=== PATIENT | male | born 1950 | race Caucasian/White ===

== ENCOUNTER 2023-06-25 07:57 | Emergency (ER) | payer MEDICARE ==
--- NOTE | 2023-06-25 08:01 | ERPHSYRPT ---
- History of Present Illness Time Seen by Provider: 06/25/23 08:01 Source: patient Exam Limitations: no limitations Physician History: This is an obese 72-year-old white male patient who is on and has complaints of right buttock ulceration/tenderness as well as pain on the dorsal aspect of his right foot. Patient has had toe amputations in the past. Patient states he used to be diabetic and he is no longer a diabetic. Although he is receiving Ozempic injections. Pain in both areas have been present for 2 weeks. no acute injury. pts son provided independent, additional hx. he states his father sits and lays down most of the day. right foot dorsal aspect has greatest amount of pain. no cp, no sob. Patient has a history of hypertension, hyperlipidemia and hypothyroidism. Patient sees an outpatient pain specialist. Patient is on buprenorphine/naloxone medication. Patient states that his last dose was last evening. Method of Injury: other (No injury) Occurred: other (Symptoms in both areas for 2 weeks) Quality: intermittent, sharpness (Right foot), stabbing (Right foot) Severity of Pain-Max: moderate (Right foot) Severity of Pain-Current: moderate (Right foot) Lower Extremities Pain: foot: right (Dorsal aspect) Modifying Factors: Improves With: nothing Associated Symptoms: none Allergies/Adverse Reactions: No Known Drug Allergies Allergy (Verified 06/25/23 08:10) Home Medications: Atorvastatin Calcium [Lipitor] 1 tab PO HS 06/25/23 [History] Levothyroxine Sodium 1 tab PO DAILY 06/25/23 [History] Losartan Potassium [Cozaar] 1 tab PO HS 06/25/23 [History] Propranolol HCl [Inderal ] 1 tab PO BID 06/25/23 [History] Travel Risk - International Travel Have you traveled outside of the country in past 3 weeks: No - Coronavirus Screening Are you exhibiting any of the following symptoms?: No Close contact with a COVID-19 positive Pt in past 14-21 Days: No - Review of Systems Constitutional: No Symptoms Eyes: No Symptoms Ears, Nose, & Throat: No Symptoms Respiratory: No Symptoms Cardiac: No Symptoms Abdominal/Gastrointestinal: No Symptoms Genitourinary Symptoms: No Symptoms Musculoskeletal: Other (Dorsal aspect right foot pain) Skin: Decubiti (Right buttock) Neurological: No Symptoms Psychological: No Symptoms Endocrine: No Symptoms Hematologic/Lymphatic: No Symptoms Immunological/Allergic: No Symptoms All Other Systems: Reviewed and Negative - Past Medical History Pertinent Past Medical History: Yes - Physical Exam General Appearance: no apparent distress, alert, anxiety, obese Eyes, Ears, Nose, Throat Exam: normal ENT inspection, moist mucous membranes Neck Exam: normal inspection, non-tender, supple, full range of motion Cardiovascular/Respiratory Exam: chest non-tender, no respiratory distress Gastrointestinal/Abdominal Exam: non-tender Back Exam: normal inspection, normal range of motion, No CVA tenderness, No vertebral tenderness Legs Exam: bilateral leg: non-tender, normal inspection, normal range of motion, no evidence of injury Knees Exam: bilateral knee: non-tender, normal inspection, normal range of motion, no evidence of injury Ankle Exam: bilateral ankle: non-tender, normal inspection, normal range of motion, no evidence of injury Foot Exam: right foot: normal range of motion, pain (Dorsal aspect.), soft tissue tenderness (Dorsal aspect), other (Skin of right foot and ankle are very dry. No cellulitis present. Strong dopplerable pedal pulses), left foot: non- tender, no evidence of injury Neuro/Tendon Exam: normal sensation, normal motor functions, normal tendon functions Mental Status Exam: alert, oriented x 3, cooperative Skin Exam: dry SpO2 Interpretation: normal O2 Delivery: Room Air - Course Nursing assessment & vital signs reviewed: Yes - Progress Progress: pain not gone completely, re-examined Progress Note: 06/25/23 08:39 This patient's medical issue is 1 of low complexity. Level complex in the workup performed is based on review of the patient's past medical history, review of the patient's medication list, reviewed patient's drug allergy list, history present illness and physical findings on examination. Patient does not require any laboratory or radiographic studies. I believe the patient has an early decubitus ulcer of his right buttock. The skin appears to be breaking down. We will place him on antibiotics for this and refer him to the wound care clinic here at [facility]. The second issue is pain in his right foot. I do not believe the patient has shingles. We will avoid acyclovir at this time. I will try to treat his pain, which I think is more of a peripheral neuropathy, with amitriptyline. He can continue his buprenorphine and naloxone medication. There is no evidence of any acute, emergent cause of his pain. He can have his pain controlled as an outpatient. 06/25/23 08:40 Counseled pt/family regarding: diagnosis, need for follow-up Medical Desision Making - Independent Historian Additional History obtained from: Family - Diagnostic Testing Diagnostic test were ordered, analyzed, and reviewed by me: No - Risk of complications The pt has a mod risk of morbidity or mortality based on: Need for prescription drug management - Departure Departure Disposition: Home Clinical Impression: Decubitus ulcer, Peripheral neuropathy Condition: Stable Critical Care Time: No Additional Instructions: Do more standing and walking rather than sitting and lying. Follow-up at the [facility] wound care clinic for further evaluation management. Take your antibiotics as prescribed. Call your pain specialist for further evaluation and management and control of your pain issues. Continue your other medications as prescribed. Prescriptions: Amitriptyline HCl 25 mg [Amitriptyline 25 mg Tablet] 25 mg PO HS #5 tablet Smz/Tmp Ds Tablet [Bactrim Ds Tablet] 1 udtab PO BID #14 tablet
[2023-06-25 08:44] VITALS: TEMP 97.6
[2023-06-25 08:45] VITALS: O2SAT 94
[2023-06-25] MEDS ORDERED: solu-MEDROL 125 MG, Sterile H2O 10 ml 2 ML IM ONE ×2 (08:48)
[2023-06-25] MEDS ORDERED: Norflex 60 MG/2 ML IM ONE (08:48)
[2023-06-25] MEDS ORDERED: Norflex 60 MG/2 ML ONE (08:52)
[2023-06-25] MEDS ORDERED: Sterile H2O 10 ml IJ ONE (08:52)
[2023-06-25] MEDS ORDERED: solu-MEDROL ONE (08:52)
[2023-06-25 09:31] VITALS: BP 139/68; PULSE 74; RESP 16
== END 2023-06-25 09:30 | disposition home or self-care (01) ==
LOC: ED 07:57
DX: L89.311 Pressure ulcer of right buttock, stage 1 (principal); G62.9 Polyneuropathy, unspecified; I10 Essential (primary) hypertension; E78.5 Hyperlipidemia, unspecified; Z79.85 Long-term (current) use of injectable non-insulin antidiabetic drugs; Z79.891 Long term (current) use of opiate analgesic; Z79.899 Other long term (current) drug therapy
CPT/HCPCS: 96372; 99283; J2360; J2930

== ENCOUNTER 2023-10-16 19:39 | Observation (INO) | payer MEDICARE ==
--- NOTE | 2023-10-16 20:21 | ERPHSYRPT ---
- History of Present Illness Time Seen by Provider: 10/16/23 20:10 Source: patient, family Physician History: 73yo m presents for left foot pain that started last night. Pt states he has very bad neuropathy in his feet, believes this is the same type of pain. Pt's also reports some word finding difficulties and slight confusion earlier today, states pt woke up w/ his CPAP off and had difficulties putting it back on. Also had difficulty remembering what he was doing earlier in the day and became defensive toward his . Pt is gennyy AxO x 3, no word finding difficulties during my exam, pt did not want to participate in memory testing or recall testing, stating he knew he wouldnt be able to recite the months of the year backwards or spell a 5 letter word. Timing/Duration: yesterday Severity: moderate Modifying Factors: Improves With: nothing Associated Symptoms: No nausea, No vomiting, No abdominal pain, No shortness of breath, No diaphoresis, No chest pain, No headaches, No seizure, No weakness Allergies/Adverse Reactions: No Known Drug Allergies Allergy (Verified 10/16/23 19:47) Home Medications: Aspirin EC 81 mg [Ecotrin 81 mg] 1 tab PO DAILY 06/25/23 [History] Atorvastatin Calcium [Lipitor] 1 tab PO HS 06/25/23 [History] Buprenorphine HCl/Naloxone HCl [Suboxone 8 mg-2 mg Sl Film] 1 film SUBMUCOSAL TID 06/25/23 [History] Escitalopram Oxalate [Lexapro] 2 tab PO DAILY 06/25/23 [History] Ezetimibe 10 mg [Zetia 10 MG] 1 tab PO HS 06/25/23 [History] Folic Acid/Vit B Complex and C [Super B Complex Tablet] 1 tab PO DAILY 06/25/23 [History] Levothyroxine Sodium 1 tab PO DAILY 06/25/23 [History] Losartan Potassium [Cozaar] 1 tab PO HS 06/25/23 [History] Multivitamin 1 tab PO DAILY 06/25/23 [History] Propranolol HCl [Inderal ] 1 tab PO BID 06/25/23 [History] Tamsulosin HCl 0.4 mg [Flomax 0.4 MG] 1 cap PO HS 06/25/23 [History] Dulaglutide [Trulicity] 0.75 mg SQ WEEKLY 10/16/23 [History] Super Vitamin B Complex 1 tab PO DAILY 10/16/23 [History] Hx Tetanus, Diphtheria Vaccination/Date Given: Yes Hx Influenza Vaccination/Date Given: Yes Hx Pneumococcal Vaccination/Date Given: Yes - Review of Systems Constitutional: No Symptoms Eyes: No Symptoms Respiratory: No Symptoms Cardiac: No Symptoms Abdominal/Gastrointestinal: No Symptoms Musculoskeletal: Other (left foot pain) Neurological: Other (word finding difficulty, confusion), No Dizziness, No Focal Weakness, No Gait Changes, No Headache, No Lethargy, No Paralysis, No Parasthesia, No Seizure, No Sensory Changes - Past Medical History Pertinent Past Medical History: Yes Cardiac History: High Cholesterol, Hypertension Endocrine Medical History: Diabetes Type II, Hypothyroidism Musculoskeletal History: Fractures GI Medical History: Gallbladder Disease History: Renal Disease Psycho-Social History: Anxiety, Depression Male Reproductive Disorders: Prostate Problems Other Medical History: Multiple Myeloma, chronic pain: Pain management in [place] (Ozzie Gaines NP) - Past Surgical History Past Surgical History: Yes Gastrointestinal: Cholecystectomy Musculoskeletal: Amputation, Other Other Surgical History: Back implant (Wavewriter Alpha 16 IPG), right wrist (librado and pins), Amputation of 1st, 2nd, 3rd toes of right foot, right knee replacement, left knee replacement, left femur (metal plate), vicente/trach, 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, sphincterotomy - Social History Smoking Status: Never smoker Exposure to second hand smoke: No Drug Use: none Patient Lives Alone: No - Nursing Vital Signs Nursing Vital Signs: Initial Vital Signs Temperature 98.1 F 10/16/23 19:49 Pulse Rate 79 10/16/23 19:49 Respiratory Rate 22 10/16/23 19:49 Blood Pressure 154/73 10/16/23 19:49 O2 Sat by Pulse Oximetry 98 10/16/23 19:49 Pain Scale Pain Intensity 6 - Physical Exam General Appearance: no apparent distress, alert Eye Exam: PERRL/EOMI, eyes nml inspection, other (pupils slightly diminished in size, reactive ) Ears, Nose, Throat Exam: normal ENT inspection Neck Exam: normal inspection, non-tender, supple Respiratory Exam: normal breath sounds, lungs clear, airway intact, No chest tenderness, No respiratory distress, No diminished breath sounds Cardiovascular Exam: regular rate/rhythm, normal heart sounds, normal peripheral pulses - Course EKG Interpreted by Me: RATE (78), Sinus Rhythm, Other (DE 263; qtc 474) Rhythm Strip: 1st degree block Ordered Tests: Active Orders 24 hr Category Date Time Status NPO (ED) STAT Care 10/16/23 20:17 Active Observation [Place in Observation] ROUTINE Care 10/17/23 00:01 Ordered FOOT (MINIMUM 3 VIEWS) Stat Exams 10/16/23 20:56 Taken HEAD WITHOUT CONTRAST [CT] Stat Exams 10/16/23 20:15 Completed ARTERIAL BLOOD GASES Urgent Lab 10/16/23 20:16 Completed CBC W DIFF Stat Lab 10/16/23 20:30 Completed CMP Stat Lab 10/16/23 20:30 Completed MAGNESIUM Stat Lab 10/16/23 22:22 Completed PROTIME WITH INR Stat Lab 10/16/23 20:30 Completed PTT Stat Lab 10/16/23 20:30 Completed UA W/RFX UR CULTURE Stat Lab 10/16/23 21:35 Completed Transfer Order Routine Transfer 10/17/23 Ordered Medication Summary Discontinued Medications Generic Name Dose Route Start Last Admin Trade Name Freq PRN Reason Stop Dose Admin Droperidol 1.25 mg 10/16/23 22:02 10/16/23 22:22 Droperidol 5 Mg/2 Ml Vial IV 10/16/23 22:03 1.25 mg STAT ONE Administration Droperidol Confirm 10/16/23 22:20 Droperidol 5 Mg/2 Ml Vial Administered 10/16/23 22:21 Dose 5 mg .ROUTE .STK-MED ONE Lab/Rad Data: Laboratory Result Diagrams 10/16/23 20:30 10/16/23 20:30 Laboratory Results 10/16/23 10/16/23 10/16/23 Range/Units 22:22 21:35 20:30 WBC (4.0-10.5) x10^3/uL RBC (4.1-5.6) x10^6/uL Hgb (12.5-18.0) g/dL Hct (42-50) % MCV (78-100) fL MCH (26-32) pg MCHC (32-36) g/dL RDW (11.5-14.0) % Plt Count (150-450) x10^3/uL MPV (7.5-11.0) fL Gran % (36.0-66.0) % Immature Gran % (Auto) (0.00-0.4) % Nucleat RBC Rel Count (0.00-0.1) % Eos # (Auto) (0-0.5) x10^3/uL Immature Gran # (Auto) (0.00-0.03) x10^3u/L Absolute Lymphs (auto) (1.0-4.6) x10^3/uL Absolute Monos (auto) (0.0-1.3) x10^3/uL Absolute Nucleated RBC (0.00-0.01) x10^3u/L Lymphocytes % (24.0-44.0) % Monocytes % (0.0-12.0) % Eosinophils % (0.00-5.0) % Basophils % (0.0-0.4) % Absolute Granulocytes (1.4-6.9) x10^3/uL Basophils # (0-0.4) x10^3/uL PT 10.9 (9.4-12.5) SECONDS INR 1.00 (0.8-3.0) APTT 24.8 L (25.1-36.5) SECONDS Puncture Site pCO2 (35-45) mmHg pO2 (75-100) mmHg Base Excess (-2.0-2.0) O2 Saturation (94-100) g/dF ABG pH (7.35-7.45) ABG HCO3 (22-28) ABG O2 Sat (Measured) (95-100) % Eder Test A-a Gradient a/A Ratio Hemoglobin Carboxyhemoglobin (0.0-6.9) % THgb Methemoglobin (1.4-1.5) % Potassium (3.5-5.1) Temperature C POC O2 Flow Rate % Sodium (135-145) mmol/L Chloride (98-107) mmol/L Carbon Dioxide (22-30) mmol/L Anion Gap (5-15) MEQ/L BUN (9-20) mg/dL Creatinine (0.66-1.25) mg/dL Estimated GFR ML/MIN Glucose (74-106) mg/dL Calcium (8.4-10.2) mg/dL Magnesium 1.7 (1.6-2.3) mg/dL Total Bilirubin (0.2-1.3) mg/dL AST (17-59) U/L ALT (0-50) U/L Alkaline Phosphatase (38-126) U/L Serum Total Protein (6.3-8.2) g/dL Albumin (3.5-5.0) g/dL Urine Color Dark Yellow (Yellow) Urine Appearance Clear (Clear) Urine pH 8.0 (4.6-8.0) Ur Specific Fonda 1.015 (1.005-1.030) Urine Protein 100 A (Negative) Urine Glucose (UA) Negative (Negative) mg/dL Urine Ketones Negative (Negative) Urine Blood Negative (Negative) Urine Nitrite Negative (Negative) Urine Bilirubin Negative (Negative) Urine Urobilinogen 1.0 A (0.2) mg/dL Ur Leukocyte Esterase Negative (Negative) U Hyaline Cast (Auto) NONE SEEN (0-2) /LPF Urine Microscopic RBC 3-5 (0-5) /HPF Urine Microscopic WBC 0-2 (0-5) /HPF Ur Epithelial Cells None Seen (None Seen) /HPF Urine Bacteria None Seen (None Seen) /HPF Urine Culture Reflexed NO (NO) 10/16/23 10/16/23 10/16/23 Range/Units 20:30 20:30 20:16 WBC 6.5 (4.0-10.5) x10^3/uL RBC 3.50 L (4.1-5.6) x10^6/uL Hgb 11.8 L (12.5-18.0) g/dL Hct 34.4 L (42-50) % MCV 98.3 (78-100) fL MCH 33.7 H (26-32) pg MCHC 34.3 (32-36) g/dL RDW 14.0 (11.5-14.0) % Plt Count 125 L (150-450) x10^3/uL MPV 10.2 (7.5-11.0) fL Gran % 75.3 H (36.0-66.0) % Immature Gran % (Auto) 0.3 (0.00-0.4) % Nucleat RBC Rel Count 0.0 (0.00-0.1) % Eos # (Auto) 0.03 (0-0.5) x10^3/uL Immature Gran # (Auto) 0.02 (0.00-0.03) x10^3u/L Absolute Lymphs (auto) 1.11 (1.0-4.6) x10^3/uL Absolute Monos (auto) 0.44 (0.0-1.3) x10^3/uL Absolute Nucleated RBC 0.00 (0.00-0.01) x10^3u/L Lymphocytes % 17.0 L (24.0-44.0) % Monocytes % 6.7 (0.0-12.0) % Eosinophils % 0.5 (0.00-5.0) % Basophils % 0.2 (0.0-0.4) % Absolute Granulocytes 4.93 (1.4-6.9) x10^3/uL Basophils # 0.01 (0-0.4) x10^3/uL PT (9.4-12.5) SECONDS INR (0.8-3.0) APTT (25.1-36.5) SECONDS Puncture Site rr pCO2 37 (35-45) mmHg pO2 72 L (75-100) mmHg Base Excess 2.5 H (-2.0-2.0) O2 Saturation 93.4 L (94-100) g/dF ABG pH 7.46 H (7.35-7.45) ABG HCO3 26.3 (22-28) ABG O2 Sat (Measured) 95.9 (95-100) % Eder Test y A-a Gradient 31 a/A Ratio 0.70 Hemoglobin 11.9 Carboxyhemoglobin 1.7 (0.0-6.9) % THgb Methemoglobin 0.8 L (1.4-1.5) % Potassium 4.0 3.9 (3.5-5.1) Temperature 37.0 C POC O2 Flow Rate 21 % Sodium 138 (135-145) mmol/L Chloride 103 (98-107) mmol/L Carbon Dioxide 27 (22-30) mmol/L Anion Gap 12.2 (5-15) MEQ/L BUN 16 (9-20) mg/dL Creatinine 1.15 (0.66-1.25) mg/dL Estimated GFR 67.2 ML/MIN Glucose 97 (74-106) mg/dL Calcium 8.6 (8.4-10.2) mg/dL Magnesium (1.6-2.3) mg/dL Total Bilirubin 1.50 H (0.2-1.3) mg/dL AST 29 (17-59) U/L ALT 18 (0-50) U/L Alkaline Phosphatase 40 (38-126) U/L Serum Total Protein 7.1 (6.3-8.2) g/dL Albumin 3.9 (3.5-5.0) g/dL Urine Color (Yellow) Urine Appearance (Clear) Urine pH (4.6-8.0) Ur Specific Fonda (1.005-1.030) Urine Protein (Negative) Urine Glucose (UA) (Negative) mg/dL Urine Ketones (Negative) Urine Blood (Negative) Urine Nitrite (Negative) Urine Bilirubin (Negative) Urine Urobilinogen (0.2) mg/dL Ur Leukocyte Esterase (Negative) U Hyaline Cast (Auto) (0-2) /LPF Urine Microscopic RBC (0-5) /HPF Urine Microscopic WBC (0-5) /HPF Ur Epithelial Cells (None Seen) /HPF Urine Bacteria (None Seen) /HPF Urine Culture Reflexed (NO) - Progress Progress: improved Progress Note: 10/16/23 22:16 pt complaining of worsening left foot pain will give droperidol IV for neuropathic pain EKG showed qtcb 474, will monitor closely for qt elongation will check mg level 10/16/23 23:00 foot pain improved w/ droperidol pt AxO x 3 on exam, pt and agree he is at baseline mental status 10/17/23 00:02 Discussed admission for obs w/ Dr Angelo who accepts Discussed with : Other (Dr Angelo) Will see patient in: hospital (observation) Counseled pt/family regarding: lab results, diagnosis, need for follow-up, rad results Medical Desision Making - Discussion of managment Care discussed with:: hospitalist Reviewed:: Test results, Need for additional workup Agreed on:: Treatment plan, need for follow-up, place in obs Will see patient: in hospital - Diagnostic Testing Diagnostic test were ordered, analyzed, and reviewed by me: Yes Radiological Interpretation: Reviewed by me, Teleradiologist Report - Risk of complications The pt has a high risk of morbidity or mortality based on: Decision regarding hospitilization or escalation of hosp level of care - Departure Departure Disposition: Observation Clinical Impression: Confusion Peripheral neuropathy Qualifiers: Peripheral neuropathy type: polyneuropathy associated with underlying disease Qualified Code(s): G63 - Polyneuropathy in diseases classified elsewhere Condition: Stable Critical Care Time: No Referrals: ORESTES DEWITT, POCKET [facility]ER [Primary Care Provider] - Follow up/PCP as directed
[2023-10-16 20:27] LABS: A-aADO2 31; ABG HEMOGLOBIN 11.9; ABG POTASSIUM 3.9 (3.5-5.1); ABG SITE rr; ALLEN TEST OK? y; ARTERIAL BLD GAS O2 SATURATION 95.9 % (95-100); ARTERIAL BLOOD GAS BASE EXCESS 2.5 (-2.0-2.0); ARTERIAL BLOOD GAS FIO2 21 %; ARTERIAL BLOOD GAS PCO2 37 mmHg (35-45); ARTERIAL BLOOD GAS PO2 72 mmHg (75-100); ARTERIAL BLOOD GAS pH 7.46 (7.35-7.45); CARBOXYHEMOGLOBIN 1.7 % THgb (0.0-6.9); HCO3- 26.3 (22-28); HGB O2 SAT 93.4 g/dF (94-100); Methhemoglobin 0.8 % (1.4-1.5)
[2023-10-16 20:37] LABS: Absolute Neutrophil Ct (ANC) 4.93 x10^3/uL (1.4-6.9); BASOPHIL % 0.2 % (0.0-0.4); Basophil (Absolute #) 0.01 x10^3/uL (0-0.4); Eosinophil % 0.5 % (0.00-5.0); Eosinophil (Absolute #) 0.03 x10^3/uL (0-0.5); Hematocrit 34.4 % (42-50); Hemoglobin 11.8 g/dL (12.5-18.0); IMMATURE GRAN # 0.02 x10^3u/L (0.00-0.03); IMMATURE GRAN % 0.3 % (0.00-0.4); Lymphocyte (Absolute #) 1.11 x10^3/uL (1.0-4.6); Mean Cell Volume 98.3 fL (78-100); Mean Corpuscular Hemoglobin 33.7 pg (26-32); Mean Corpuscular Hgb Concent. 34.3 g/dL (32-36); Mean Platelet Volume 10.2 fL (7.5-11.0); Monocyte (Absolute #) 0.44 x10^3/uL (0.0-1.3); Monocytes % 6.7 % (0.0-12.0); Neutrophil % 75.3 % (36.0-66.0); Platelet Count 125 x10^3/uL (150-450); White Blood Count 6.5 x10^3/uL (4.0-10.5)
[2023-10-16 20:49] LABS: ALBUMIN 3.9 g/dL (3.5-5.0); ANION GAP 12.2 MEQ/L (5-15); BILIRUBIN,TOTAL 1.5 mg/dL (0.2-1.3); Calcium 8.6 mg/dL (8.4-10.2); Creatinine 1 1.15 mg/dL (0.66-1.25); EST GLOMERULAR FILTRATION RATE 67.2 ML/MIN; Total Protein 7.1 g/dL (6.3-8.2)
[2023-10-16 20:52] LABS: PROTIME 10.9 SECONDS (9.4-12.5); PTT 24.8 SECONDS (25.1-36.5)
--- NOTE | 2023-10-16 21:29 | XRAY ---
CLINICAL HISTORY: confusion TECHNIQUE: An axial CT scan of the brain was performed from the skull base to the high parietal region. One of the following dose reduction techniques were utilized for this exam: Automated exposure control, adjustment of the mA and/or kV according to patient size, and use of iterative reconstruction CTDI: 53.92, DLP: 1016.25. COMPARISON: None. FINDINGS: The visualized brain parenchyma shows normal appearance. No focal parenchymal abnormalities are demonstrated. Christopher-white matter differentiation is maintained. No midline shifts or deformity. No intracerebral or extra axial hematoma. The cortical sulci, fissures, basal cisterns, and ventricles are widened, and the cerebellar folia are shrunken, consistent with volume loss. Normal CT appearance of the posterior fossa structures namely the cerebellar hemispheres, brainstem and cerebellar peduncles. The IACs are unremarkable. The cerebello-pontine angles are clear. The osseous structures in the skull base are unremarkable. No definite calvarium fractures. Scanned paranasal sinuses are clear. 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 (10/16/2023 21:24:51 EDT)
[2023-10-16 23:08] LABS: Appearance Clear (Clear); Bacteria None Seen /HPF (None Seen); Bilirubin Negative (Negative); Blood Negative (Negative); Epithelial Cells None Seen /HPF (None Seen); Glucose, Urine Negative (Negative); Hyaline Casts NONE SEEN /LPF (0-2); Ketones Negative (Negative); Leukocyte Esterase Negative (Negative); Nitrite Negative (Negative); Protein,Urine Dip 100 (Negative); Specific Gravity 1.015 (1.005-1.030); WBC 0-2 /HPF (0-5)
[2023-10-16 23:09] LABS: ADD URINE CULTURE? NO (NO)
--- NOTE | 2023-10-17 00:16 | PCM.HP ---
History of Present Illness - Chief Complaint Chief Complaint: confusion Date: 10/16/23 History of Present Illness: Mr. CAMPO is a 73 year old male with a past medical history significant for hypertension, hyperlipidemia, sleep apnea, and neuropathy who presented to the hospital with complaints of left foot pain. His also reported increasing confusion, difficulty finding the right words, and he apparently pulled off his CPAP mask. He denies any focal weakness, slurred speech or dizziness. He was given droperidol for his foot, which has improved. His mentation is improved and he is currently AAOx3 in the ER. No chest pain, shortness of breath or palpitations. No nausea, vomiting or diarrhea. No dysuria, hematuria or foamy urine. - Review of Systems Constitutional: No Fever, No Chills, No Fatigue Eyes: No Vision Changes Ears, Nose, & Throat: No Ear Discharge Respiratory: No Cough, No Orthopnea, No Short Of Breath Cardiac: No Chest Pain, No Edema, No Palpitations Abdominal/Gastrointestinal: No Abdominal Pain, No Nausea, No Vomiting, No Diarrhea Genitourinary Symptoms: No Dysuria, No Frequency, No Hematuria Musculoskeletal: No Arthralgias Skin: No Cellulitis, No Rash Neurological: No Dizziness, No Focal Weakness, No Gait Changes, No Seizure Psychological: No Suicidal Ideations Endocrine: No Polyuria, No Polydipsia, No Hair Changes Hematologic/Lymphatic: No Anemia Medications & Allergies Home Medications: Home Medication List Aspirin EC 81 mg [Ecotrin 81 mg] 1 tab PO DAILY 06/25/23 [History Confirmed 10/16/23] Atorvastatin Calcium [Lipitor] 1 tab PO HS 06/25/23 [History Confirmed 10/16/23] Buprenorphine HCl/Naloxone HCl [Suboxone 8 mg-2 mg Sl Film] 1 film SUBMUCOSAL TID 06/25/23 [History Confirmed 10/16/23] Escitalopram Oxalate [Lexapro] 2 tab PO DAILY 06/25/23 [History Confirmed 10/16/23] Ezetimibe 10 mg [Zetia 10 MG] 1 tab PO HS 06/25/23 [History Confirmed 10/16/23] Folic Acid/Vit B Complex and C [Super B Complex Tablet] 1 tab PO DAILY 06/25/23 [History Confirmed 10/16/23] Levothyroxine Sodium 1 tab PO DAILY 06/25/23 [History Confirmed 10/16/23] Losartan Potassium [Cozaar] 1 tab PO HS 06/25/23 [History Confirmed 10/16/23] Multivitamin 1 tab PO DAILY 06/25/23 [History Confirmed 10/16/23] Propranolol HCl [Inderal ] 1 tab PO BID 06/25/23 [History Confirmed 10/16/23] Tamsulosin HCl 0.4 mg [Flomax 0.4 MG] 1 cap PO HS 06/25/23 [History Confirmed 10/16/23] Dulaglutide [Trulicity] 0.75 mg SQ WEEKLY 10/16/23 [History Confirmed 10/16/23] Super Vitamin B Complex 1 tab PO DAILY 10/16/23 [History Confirmed 10/16/23] Allergies/Adverse Reactions: Allergies Allergy/AdvReac Type Severity Reaction Status Date / Time No Known Drug Allergies Allergy Verified 10/16/23 19:47 - Past Medical History Past Medical History: Yes Neurological History: No Pertinent History ENT History: No Pertinent History Cardiac History: High Cholesterol, Hypertension Respiratory History: COPD, Sleep Apnea Endocrine Medical History: Diabetes Type II, Hypothyroidism Musculoskelatal History: Fractures GI Medical History: Gallbladder Disease History: Renal Disease Pyscho-Social History: Anxiety, Depression Male Reproductive Disorders: Prostate Problems Comment: Multiple Myeloma, chronic pain: Pain management in [place] (Ozzie Gaines NP) - Past Surgical History Past Surgical History: Yes Neuro Surgical History: No Pertinent History Cardiac History: No Pertinent History Respiratory Surgery: No Pertinent History GI Surgical History: Cholecystectomy Genitourinary Surgical Hx: No Pertinent History Musculskeletal Surgical Hx: Amputation, Other Male Surgical History: No Pertinent History Other Surgical History: Back implant (Wavewriter Alpha 16 IPG), right wrist (librado and pins), Amputation of 1st, 2nd, 3rd toes of right foot, right knee replacement, left knee replacement, left femur (metal plate), vicente/trach, 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, sphincterotomy - Social History Smoking Status: Never smoker Exposure to second hand smoke: No Alcohol: None Drug Use: none - Social Determinants of Health Will the patient participate in the screening: Yes Do you worry about a steady place to live?: No Do you have any problems with any of the following?: Smoke detectors In the past 12 months,have you had to go without utilities?: No Have you or anyone in your house had to go without enough: Choose not to answer Transportation Issues: No Has anyone in your support network made you feel unsafe?: No - Physical Exam Vital Signs: Vital Signs - 24 hr Temp Pulse Resp BP BP Pulse Ox 10/17/23 00:01 77 22 156/104 93 L 10/16/23 23:30 77 18 156/81 94 L 10/16/23 23:01 78 20 134/90 97 10/16/23 22:31 77 23 145/65 96 10/16/23 22:01 78 21 146/60 98 10/16/23 21:31 77 19 145/101 96 10/16/23 21:01 78 21 155/73 95 10/16/23 21:00 78 28 H 94 L 10/16/23 20:58 25 H 10/16/23 20:00 79 24 158/103 96 10/16/23 19:49 98.1 F 79 22 154/73 98 General Appearance: no apparent distress Neurologic Exam: alert, oriented x 3 Ears, Nose, Throat Exam: dry mucous membranes Neck Exam: normal inspection Respiratory Exam: No respiratory distress Cardiovascular Exam: regular rate/rhythm Gastrointestinal/Abdomen Exam: soft Extremity Exam: No pedal edema, No swelling Skin Exam: normal color Results - Labs Lab/Micro Results: Lab Results-Last 24 Hours 10/16/23 10/16/23 10/16/23 Range/Units 20:16 20:30 20:30 WBC 6.5 (4.0-10.5) x10^3/uL RBC 3.50 L (4.1-5.6) x10^6/uL Hgb 11.8 L (12.5-18.0) g/dL Hct 34.4 L (42-50) % MCV 98.3 (78-100) fL MCH 33.7 H (26-32) pg MCHC 34.3 (32-36) g/dL RDW 14.0 (11.5-14.0) % Plt Count 125 L (150-450) x10^3/uL MPV 10.2 (7.5-11.0) fL Gran % 75.3 H (36.0-66.0) % Immature Gran % (Auto) 0.3 (0.00-0.4) % Nucleat RBC Rel Count 0.0 (0.00-0.1) % Eos # (Auto) 0.03 (0-0.5) x10^3/uL Immature Gran # (Auto) 0.02 (0.00-0.03) x10^3u/L Absolute Lymphs (auto) 1.11 (1.0-4.6) x10^3/uL Absolute Monos (auto) 0.44 (0.0-1.3) x10^3/uL Absolute Nucleated RBC 0.00 (0.00-0.01) x10^3u/L Lymphocytes % 17.0 L (24.0-44.0) % Monocytes % 6.7 (0.0-12.0) % Eosinophils % 0.5 (0.00-5.0) % Basophils % 0.2 (0.0-0.4) % Absolute Granulocytes 4.93 (1.4-6.9) x10^3/uL Basophils # 0.01 (0-0.4) x10^3/uL PT (9.4-12.5) SECONDS INR (0.8-3.0) APTT (25.1-36.5) SECONDS Puncture Site rr pCO2 37 (35-45) mmHg pO2 72 L (75-100) mmHg Base Excess 2.5 H (-2.0-2.0) O2 Saturation 93.4 L (94-100) g/dF ABG pH 7.46 H (7.35-7.45) ABG HCO3 26.3 (22-28) ABG O2 Sat (Measured) 95.9 (95-100) % Eder Test y A-a Gradient 31 a/A Ratio 0.70 Hemoglobin 11.9 Carboxyhemoglobin 1.7 (0.0-6.9) % THgb Methemoglobin 0.8 L (1.4-1.5) % Potassium 3.9 4.0 (3.5-5.1) Temperature 37.0 C POC O2 Flow Rate 21 % Sodium 138 (135-145) mmol/L Chloride 103 (98-107) mmol/L Carbon Dioxide 27 (22-30) mmol/L Anion Gap 12.2 (5-15) MEQ/L BUN 16 (9-20) mg/dL Creatinine 1.15 (0.66-1.25) mg/dL Estimated GFR 67.2 ML/MIN Glucose 97 (74-106) mg/dL Calcium 8.6 (8.4-10.2) mg/dL Magnesium (1.6-2.3) mg/dL Total Bilirubin 1.50 H (0.2-1.3) mg/dL AST 29 (17-59) U/L ALT 18 (0-50) U/L Alkaline Phosphatase 40 (38-126) U/L Serum Total Protein 7.1 (6.3-8.2) g/dL Albumin 3.9 (3.5-5.0) g/dL Urine Color (Yellow) Urine Appearance (Clear) Urine pH (4.6-8.0) Ur Specific [place] (1.005-1.030) Urine Protein (Negative) Urine Glucose (UA) (Negative) mg/dL Urine Ketones (Negative) Urine Blood (Negative) Urine Nitrite (Negative) Urine Bilirubin (Negative) Urine Urobilinogen (0.2) mg/dL Ur Leukocyte Esterase (Negative) U Hyaline Cast (Auto) (0-2) /LPF Urine Microscopic RBC (0-5) /HPF Urine Microscopic WBC (0-5) /HPF Ur Epithelial Cells (None Seen) /HPF Urine Bacteria (None Seen) /HPF Urine Culture Reflexed (NO) 10/16/23 10/16/23 10/16/23 Range/Units 20:30 21:35 22:22 WBC (4.0-10.5) x10^3/uL RBC (4.1-5.6) x10^6/uL Hgb (12.5-18.0) g/dL Hct (42-50) % MCV (78-100) fL MCH (26-32) pg MCHC (32-36) g/dL RDW (11.5-14.0) % Plt Count (150-450) x10^3/uL MPV (7.5-11.0) fL Gran % (36.0-66.0) % Immature Gran % (Auto) (0.00-0.4) % Nucleat RBC Rel Count (0.00-0.1) % Eos # (Auto) (0-0.5) x10^3/uL Immature Gran # (Auto) (0.00-0.03) x10^3u/L Absolute Lymphs (auto) (1.0-4.6) x10^3/uL Absolute Monos (auto) (0.0-1.3) x10^3/uL Absolute Nucleated RBC (0.00-0.01) x10^3u/L Lymphocytes % (24.0-44.0) % Monocytes % (0.0-12.0) % Eosinophils % (0.00-5.0) % Basophils % (0.0-0.4) % Absolute Granulocytes (1.4-6.9) x10^3/uL Basophils # (0-0.4) x10^3/uL PT 10.9 (9.4-12.5) SECONDS INR 1.00 (0.8-3.0) APTT 24.8 L (25.1-36.5) SECONDS Puncture Site pCO2 (35-45) mmHg pO2 (75-100) mmHg Base Excess (-2.0-2.0) O2 Saturation (94-100) g/dF ABG pH (7.35-7.45) ABG HCO3 (22-28) ABG O2 Sat (Measured) (95-100) % Eder Test A-a Gradient a/A Ratio Hemoglobin Carboxyhemoglobin (0.0-6.9) % THgb Methemoglobin (1.4-1.5) % Potassium (3.5-5.1) Temperature C POC O2 Flow Rate % Sodium (135-145) mmol/L Chloride (98-107) mmol/L Carbon Dioxide (22-30) mmol/L Anion Gap (5-15) MEQ/L BUN (9-20) mg/dL Creatinine (0.66-1.25) mg/dL Estimated GFR ML/MIN Glucose (74-106) mg/dL Calcium (8.4-10.2) mg/dL Magnesium 1.7 (1.6-2.3) mg/dL Total Bilirubin (0.2-1.3) mg/dL AST (17-59) U/L ALT (0-50) U/L Alkaline Phosphatase (38-126) U/L Serum Total Protein (6.3-8.2) g/dL Albumin (3.5-5.0) g/dL Urine Color Dark Yellow (Yellow) Urine Appearance Clear (Clear) Urine pH 8.0 (4.6-8.0) Ur Specific [place] 1.015 (1.005-1.030) Urine Protein 100 A (Negative) Urine Glucose (UA) Negative (Negative) mg/dL Urine Ketones Negative (Negative) Urine Blood Negative (Negative) Urine Nitrite Negative (Negative) Urine Bilirubin Negative (Negative) Urine Urobilinogen 1.0 A (0.2) mg/dL Ur Leukocyte Esterase Negative (Negative) U Hyaline Cast (Auto) NONE SEEN (0-2) /LPF Urine Microscopic RBC 3-5 (0-5) /HPF Urine Microscopic WBC 0-2 (0-5) /HPF Ur Epithelial Cells None Seen (None Seen) /HPF Urine Bacteria None Seen (None Seen) /HPF Urine Culture Reflexed NO (NO) - Radiology Impressions Radiology Exams & Impressions: Radiology Procedures Category Date Time Status FOOT (MINIMUM 3 VIEWS) Stat Exams 10/16/23 20:56 Taken HEAD WITHOUT CONTRAST [CT] Stat Exams 10/16/23 20:15 Completed Assessment/Plan (1) Confusion Current Visit: Yes Status: Acute Assessment & Plan: Perhaps transient event with neuropathy but need to rule out CVA 1. Admit to hospital 2. Neuro checks 3. ASA 81mg daily 4. Will obtain MRI brain Code(s): R41.0 - DISORIENTATION, UNSPECIFIED (2) Chronic kidney disease, stage 2 (mild) Current Visit: Yes Status: Acute Assessment & Plan: Creatinine 1.15 may reflect some mild prerenal azotemia versus CKD 1. Gentle IVFs 2. Encourage PO intake 3. Follow I/Os 4. Watch electrolytes, creatinine closely Code(s): N18.2 - CHRONIC KIDNEY DISEASE, STAGE 2 (MILD) (3) Hypertensive chronic kidney disease with stage 1 through stage 4 chronic kidney disease, or unspecified chronic kidney disease Current Visit: Yes Status: Acute Assessment & Plan: Blood pressure appears reasonable 1. Low sodium diet 2. BP meds prn 3. Monitor blood pressure readings Code(s): I12.9 - HYPERTENSIVE CHRONIC KIDNEY DISEASE W STG 1-4/UNSP CHR KDNY (4) Peripheral neuropathy Current Visit: Yes Status: Acute Qualifiers: Peripheral neuropathy type: polyneuropathy associated with underlying disease Qualified Code(s): G63 - Polyneuropathy in diseases classified elsewhere Code(s): G62.9 - POLYNEUROPATHY, UNSPECIFIED Telemedicine Encounter - Telemedicine Encounter Telemedicine Encounter: The entirety of this encounter was performed via Telemedicine"
[2023-10-17] MEDS ORDERED: Docusate Sodium 100 MG PO PRN (00:36)
[2023-10-17] MEDS ORDERED: Zofran 4 MG/2 ML VIAL IV PRN (00:36)
[2023-10-17] MEDS ORDERED: TYLENOL 325 MG PO PRN (00:36)
[2023-10-17] MEDS: Sodium Chloride 0.9% 1000 ML 1,000 ML IV SCH (01:18)
[2023-10-17 05:14] LABS: Hematocrit 32.6 % (42-50); Mean Cell Volume 99.1 fL (78-100); Mean Corpuscular Hemoglobin 33.4 pg (26-32); Mean Corpuscular Hgb Concent. 33.7 g/dL (32-36); Platelet Count 104 x10^3/uL (150-450); Red Blood Count 3.29 x10^6/uL (4.1-5.6); Red Cell Distribution Width 14.2 % (11.5-14.0); White Blood Count 4.4 x10^3/uL (4.0-10.5)
[2023-10-17 05:34] LABS: ALBUMIN 3.6 g/dL (3.5-5.0); ANION GAP 10.8 MEQ/L (5-15); BILIRUBIN,TOTAL 1.6 mg/dL (0.2-1.3); Calcium 8.5 mg/dL (8.4-10.2); Creatinine 1 1.17 mg/dL (0.66-1.25); EST GLOMERULAR FILTRATION RATE 65.8 ML/MIN; Potassium 3.7 mmol/L (3.5-5.1); Total Protein 6.6 g/dL (6.3-8.2)
[2023-10-17] MEDS: SYNTHROID 150 MCG PO SCH (06:41)
[2023-10-17] MEDS ORDERED: NON-FORMULARY ITEM (Dulaglutide [Trulicity] 0.75 MG/0.5 ML Pen.Injctr) SQ SCH (08:15)
[2023-10-17] MEDS ORDERED: MEDICATION INTERVENTION MC SCH ×2 (08:30→08:45)
--- NOTE | 2023-10-17 08:38 | XRAY ---
Indication: Pain. No known injury. Comparison: None 3 nonweightbearing views left foot demonstrates osteopenia, mild 1st tarsometatarsal degenerative changes, small posterior/plantar heel spurs, and tiny cuboid accessory ossicle. No other bony, articular, or soft tissue abnormalities.
--- NOTE | 2023-10-17 09:47 | XRAY ---
Indication: Confusion. Negative CT head one day earlier. Sagittal, coronal, and axial MRI brain performed using pre and post T1, T2, FLAIR, diffusion, and ADC sequences as ordered. 20 cc Dotarem contrast used. Comparison: None Age-appropriate global atrophy and minimal periventricular degenerative micro-ischemia signal bilaterally. No acute intracranial hemorrhage, abnormal extra-axial fluid collection, or mass effect. Diffusion images are negative for restricted signal. Following gadolinium, no abnormal enhancing intra or extra-axial mass. Fourth ventricle is midline without hydrocephalus. 7/8 cranial nerve complex bilaterally symmetric. Normal flow-void signal within the major intracerebral circulation. Normal appearing craniocervical junction and sella turcica. Paranasal sinuses are clear. Impression: 1. Normal aging brain including atrophy and degenerative micro-ischemia. 2. Remaining MRI brain with contrast exam is negative.
[2023-10-17] MEDS ORDERED: [UNRECOGNIZED DRUG - OTHER] PO SCH (10:00)
[2023-10-17] MEDS ORDERED: Cozaar 50 MG PO SCH ×2 (10:00→22:00)
[2023-10-17] MEDS ORDERED: NON-FORMULARY ITEM (Buprenorphine Hcl/Naloxone Hcl [Suboxone 8 Mg-2 Mg Sl Film] 1 EACH Fil SUBMUCOSAL SCH (10:00)
[2023-10-17] MEDS ORDERED: Lexapro PO SCH (10:00)
--- NOTE | 2023-10-17 10:31 | XRAY ---
Indication: Right foot wound. Comparison: None 2 nonweightbearing views right foot demonstrates total amputation 1st/2nd toes and head 2nd metatarsal with overlying soft tissue swelling. Small subcutaneous emphysema adjacent head 1st metatarsal, possible gas-forming infection in right clinical setting. Incidental small heel spurs. No other bony, articular, or soft tissue abnormalities.
[2023-10-17] MEDS: ENOXAPARIN SODIUM SQ SCH (10:51)
[2023-10-17] MEDS: THERAGRAN MULTIVITAMIN PO SCH (10:52)
[2023-10-17] MEDS: Protonix 40MG Tablet PO SCH (10:52)
[2023-10-17] MEDS: Zetia 10 MG PO SCH (10:52)
[2023-10-17] MEDS: Inderal PO SCH (10:52)
[2023-10-17] MEDS: ECOTRIN 81 MG PO SCH (10:52)
[2023-10-17] MEDS: Flomax 0.4 MG PO SCH (10:53)
[2023-10-17] MEDS: Lexapro PO SCH (10:53)
[2023-10-17] MEDS: VITA-BEE WITH C PO SCH (10:53)
[2023-10-17 11:27] VITALS: BP 149/64; PULSE 72; RESP 18; TEMP 96.4; O2SAT 99
--- NOTE | 2023-10-17 13:37 | XRAY ---
Indication: Right lower extremity wound. Multiple contiguous axial images obtained through the right foot without contrast. Sagittal and coronal reformatted images obtained. Comparison: None. There is same-day right foot radiograph. Total amputation 1st/2nd toes and head 2nd metatarsal with overlying soft tissue swelling. No acute fracture, suspicious bony lesions, or osseous destructive process. Incidental tiny posterior/plantar calcaneal spurring and subcentimeter distal tibia subcortical cyst. Plantar calcaneus demonstrates 2.5 x 1.1 x 2.0 cm cyst superficial to plantar aponeurosis with surrounding induration presumed inflammatory/infectious. Lack of IV contrast precludes further characterization. Very minimal arteriosclerotic calcifications. Remaining visualized noncontrasted soft tissues are unremarkable. Impression: 1. Amputation 1st/2nd toes and head 2nd metatarsal with overlying soft tissue swelling presumed postoperative. Infection not completely excluded in right clinical setting. Subcutaneous emphysema I reported on same-day radiograph is artifactual due to anterior plantar cutaneous soft tissue defect. 2. Small cyst superficial to plantar aponeurosis as detailed likely inflammatory/infectious. 3. Incidental heel spurs and small distal tibia bone cyst.
--- NOTE | 2023-10-17 15:09 | PCM.DS ---
Discharge Summary Date of Admission: 10/17/23 00:11 Date of Discharge: 10/17/23 Admitting Physician: ELOISA ALONZO MD Consults: Consults on Case 10/17/23 00:52 Case Management SDOH DC Needs Assessment ROUTINE 10/17/23 08:02 Consult Neurology ROUTINE 10/17/23 08:04 Consult Podiatry ROUTINE Primary Care Provider: ORESTES DEWITT Allergies Allergies No Known Drug Allergies Allergy (Verified 10/17/23 00:55) Hospital Summary - Hospital Course Hospital Course: Mr. CAMPO is a 73 year old male with a past medical history significant for hypertension, hyperlipidemia, sleep apnea, and neuropathy who presented to the hospital with complaints of left foot pain. His also reported increasing confusion, difficulty finding the right words, and he apparently pulled off his CPAP mask. He denies any focal weakness, slurred speech or dizziness. He was given droperidol for his foot in ER, which helped his pain. His mentation is improved and he is currently AAOx3. CT brain and MRI both negative for acute concern. Neurology consulted for further evaluation and no concerns per their eval. He has left foot outer aspect neuropathy pain as pt describes. He describes as intermittent shooting pain. He also explained he has chronic neuropathy of BLLE from knees down and does not have much feeling. He follows POONAM Rico with pain management at [facility] for buprenorphine. Asked pt to have bring in meds to take. brought in but feels they make him sleepy and she does not want him to take at this time. Pt has Droperidol PRN if needed since it was helpful on admission. Podiatry consulted for right foot ulcer. Pt states he follows wound care OP at [facility]. CT reviewed by podiatry and pt can f/u Op with wound care at [facility] per his recommendations. - Vitals & Intake/Output Vital Signs: Vital Signs Temperature 96.4 F 10/17/23 11:26 Pulse Rate 72 10/17/23 11:26 Respiratory Rate 18 10/17/23 11:26 Blood Pressure 149/64 10/17/23 11:26 O2 Sat by Pulse Oximetry 99 10/17/23 11:26 Intake & Output: Intake & Output 10/15/23 10/16/23 10/17/23 10/18/23 11:59 11:59 11:59 11:59 Intake Total 896 450 Output Total 500 Balance 396 450 Weight 119.8 kg - Lab Result Diagrams: 10/17/23 04:40 10/17/23 04:40 Lab Results-Last 24 Hrs: Lab Results-Last 24 Hours 10/16/23 10/16/23 10/16/23 Range/Units 20:16 20:30 20:30 WBC 6.5 (4.0-10.5) x10^3/uL RBC 3.50 L (4.1-5.6) x10^6/uL Hgb 11.8 L (12.5-18.0) g/dL Hct 34.4 L (42-50) % MCV 98.3 (78-100) fL MCH 33.7 H (26-32) pg MCHC 34.3 (32-36) g/dL RDW 14.0 (11.5-14.0) % Plt Count 125 L (150-450) x10^3/uL MPV 10.2 (7.5-11.0) fL Gran % 75.3 H (36.0-66.0) % Immature Gran % (Auto) 0.3 (0.00-0.4) % Nucleat RBC Rel Count 0.0 (0.00-0.1) % Eos # (Auto) 0.03 (0-0.5) x10^3/uL Immature Gran # (Auto) 0.02 (0.00-0.03) x10^3u/L Absolute Lymphs (auto) 1.11 (1.0-4.6) x10^3/uL Absolute Monos (auto) 0.44 (0.0-1.3) x10^3/uL Absolute Nucleated RBC 0.00 (0.00-0.01) x10^3u/L Lymphocytes % 17.0 L (24.0-44.0) % Monocytes % 6.7 (0.0-12.0) % Eosinophils % 0.5 (0.00-5.0) % Basophils % 0.2 (0.0-0.4) % Absolute Granulocytes 4.93 (1.4-6.9) x10^3/uL Basophils # 0.01 (0-0.4) x10^3/uL PT (9.4-12.5) SECONDS INR (0.8-3.0) APTT (25.1-36.5) SECONDS Puncture Site rr pCO2 37 (35-45) mmHg pO2 72 L (75-100) mmHg Base Excess 2.5 H (-2.0-2.0) O2 Saturation 93.4 L (94-100) g/dF ABG pH 7.46 H (7.35-7.45) ABG HCO3 26.3 (22-28) ABG O2 Sat (Measured) 95.9 (95-100) % Eder Test y A-a Gradient 31 a/A Ratio 0.70 Hemoglobin 11.9 Carboxyhemoglobin 1.7 (0.0-6.9) % THgb Methemoglobin 0.8 L (1.4-1.5) % Potassium 3.9 4.0 (3.5-5.1) Temperature 37.0 C POC O2 Flow Rate 21 % Sodium 138 (135-145) mmol/L Chloride 103 (98-107) mmol/L Carbon Dioxide 27 (22-30) mmol/L Anion Gap 12.2 (5-15) MEQ/L BUN 16 (9-20) mg/dL Creatinine 1.15 (0.66-1.25) mg/dL Estimated GFR 67.2 ML/MIN Glucose 97 (74-106) mg/dL POC Glucometer (74 to 106) mg/dL Calcium 8.6 (8.4-10.2) mg/dL Magnesium (1.6-2.3) mg/dL Total Bilirubin 1.50 H (0.2-1.3) mg/dL AST 29 (17-59) U/L ALT 18 (0-50) U/L Alkaline Phosphatase 40 (38-126) U/L Serum Total Protein 7.1 (6.3-8.2) g/dL Albumin 3.9 (3.5-5.0) g/dL Urine Color (Yellow) Urine Appearance (Clear) Urine pH (4.6-8.0) Ur Specific [place] (1.005-1.030) Urine Protein (Negative) Urine Glucose (UA) (Negative) mg/dL Urine Ketones (Negative) Urine Blood (Negative) Urine Nitrite (Negative) Urine Bilirubin (Negative) Urine Urobilinogen (0.2) mg/dL Ur Leukocyte Esterase (Negative) U Hyaline Cast (Auto) (0-2) /LPF Urine Microscopic RBC (0-5) /HPF Urine Microscopic WBC (0-5) /HPF Ur Epithelial Cells (None Seen) /HPF Urine Bacteria (None Seen) /HPF Urine Culture Reflexed (NO) 10/16/23 10/16/23 10/16/23 Range/Units 20:30 21:35 22:22 WBC (4.0-10.5) x10^3/uL RBC (4.1-5.6) x10^6/uL Hgb (12.5-18.0) g/dL Hct (42-50) % MCV (78-100) fL MCH (26-32) pg MCHC (32-36) g/dL RDW (11.5-14.0) % Plt Count (150-450) x10^3/uL MPV (7.5-11.0) fL Gran % (36.0-66.0) % Immature Gran % (Auto) (0.00-0.4) % Nucleat RBC Rel Count (0.00-0.1) % Eos # (Auto) (0-0.5) x10^3/uL Immature Gran # (Auto) (0.00-0.03) x10^3u/L Absolute Lymphs (auto) (1.0-4.6) x10^3/uL Absolute Monos (auto) (0.0-1.3) x10^3/uL Absolute Nucleated RBC (0.00-0.01) x10^3u/L Lymphocytes % (24.0-44.0) % Monocytes % (0.0-12.0) % Eosinophils % (0.00-5.0) % Basophils % (0.0-0.4) % Absolute Granulocytes (1.4-6.9) x10^3/uL Basophils # (0-0.4) x10^3/uL PT 10.9 (9.4-12.5) SECONDS INR 1.00 (0.8-3.0) APTT 24.8 L (25.1-36.5) SECONDS Puncture Site pCO2 (35-45) mmHg pO2 (75-100) mmHg Base Excess (-2.0-2.0) O2 Saturation (94-100) g/dF ABG pH (7.35-7.45) ABG HCO3 (22-28) ABG O2 Sat (Measured) (95-100) % Eder Test A-a Gradient a/A Ratio Hemoglobin Carboxyhemoglobin (0.0-6.9) % THgb Methemoglobin (1.4-1.5) % Potassium (3.5-5.1) Temperature C POC O2 Flow Rate % Sodium (135-145) mmol/L Chloride (98-107) mmol/L Carbon Dioxide (22-30) mmol/L Anion Gap (5-15) MEQ/L BUN (9-20) mg/dL Creatinine (0.66-1.25) mg/dL Estimated GFR ML/MIN Glucose (74-106) mg/dL POC Glucometer (74 to 106) mg/dL Calcium (8.4-10.2) mg/dL Magnesium 1.7 (1.6-2.3) mg/dL Total Bilirubin (0.2-1.3) mg/dL AST (17-59) U/L ALT (0-50) U/L Alkaline Phosphatase (38-126) U/L Serum Total Protein (6.3-8.2) g/dL Albumin (3.5-5.0) g/dL Urine Color Dark Yellow (Yellow) Urine Appearance Clear (Clear) Urine pH 8.0 (4.6-8.0) Ur Specific [place] 1.015 (1.005-1.030) Urine Protein 100 A (Negative) Urine Glucose (UA) Negative (Negative) mg/dL Urine Ketones Negative (Negative) Urine Blood Negative (Negative) Urine Nitrite Negative (Negative) Urine Bilirubin Negative (Negative) Urine Urobilinogen 1.0 A (0.2) mg/dL Ur Leukocyte Esterase Negative (Negative) U Hyaline Cast (Auto) NONE SEEN (0-2) /LPF Urine Microscopic RBC 3-5 (0-5) /HPF Urine Microscopic WBC 0-2 (0-5) /HPF Ur Epithelial Cells None Seen (None Seen) /HPF Urine Bacteria None Seen (None Seen) /HPF Urine Culture Reflexed NO (NO) 10/17/23 10/17/23 10/17/23 Range/Units 04:40 04:40 06:44 WBC 4.4 (4.0-10.5) x10^3/uL RBC 3.29 L (4.1-5.6) x10^6/uL Hgb 11.0 L (12.5-18.0) g/dL Hct 32.6 L (42-50) % MCV 99.1 (78-100) fL MCH 33.4 H (26-32) pg MCHC 33.7 (32-36) g/dL RDW 14.2 H (11.5-14.0) % Plt Count 104 L (150-450) x10^3/uL MPV 10.0 (7.5-11.0) fL Gran % (36.0-66.0) % Immature Gran % (Auto) (0.00-0.4) % Nucleat RBC Rel Count (0.00-0.1) % Eos # (Auto) (0-0.5) x10^3/uL Immature Gran # (Auto) (0.00-0.03) x10^3u/L Absolute Lymphs (auto) (1.0-4.6) x10^3/uL Absolute Monos (auto) (0.0-1.3) x10^3/uL Absolute Nucleated RBC (0.00-0.01) x10^3u/L Lymphocytes % (24.0-44.0) % Monocytes % (0.0-12.0) % Eosinophils % (0.00-5.0) % Basophils % (0.0-0.4) % Absolute Granulocytes (1.4-6.9) x10^3/uL Basophils # (0-0.4) x10^3/uL PT (9.4-12.5) SECONDS INR (0.8-3.0) APTT (25.1-36.5) SECONDS Puncture Site pCO2 (35-45) mmHg pO2 (75-100) mmHg Base Excess (-2.0-2.0) O2 Saturation (94-100) g/dF ABG pH (7.35-7.45) ABG HCO3 (22-28) ABG O2 Sat (Measured) (95-100) % Eder Test A-a Gradient a/A Ratio Hemoglobin Carboxyhemoglobin (0.0-6.9) % THgb Methemoglobin (1.4-1.5) % Potassium 3.7 (3.5-5.1) Temperature C POC O2 Flow Rate % Sodium 137 (135-145) mmol/L Chloride 104 (98-107) mmol/L Carbon Dioxide 26 (22-30) mmol/L Anion Gap 10.8 (5-15) MEQ/L BUN 15 (9-20) mg/dL Creatinine 1.17 (0.66-1.25) mg/dL Estimated GFR 65.8 ML/MIN Glucose 94 (74-106) mg/dL POC Glucometer 109 H (74 to 106) mg/dL Calcium 8.5 (8.4-10.2) mg/dL Magnesium (1.6-2.3) mg/dL Total Bilirubin 1.60 H (0.2-1.3) mg/dL AST 29 (17-59) U/L ALT 16 (0-50) U/L Alkaline Phosphatase 41 (38-126) U/L Serum Total Protein 6.6 (6.3-8.2) g/dL Albumin 3.6 (3.5-5.0) g/dL Urine Color (Yellow) Urine Appearance (Clear) Urine pH (4.6-8.0) Ur Specific [place] (1.005-1.030) Urine Protein (Negative) Urine Glucose (UA) (Negative) mg/dL Urine Ketones (Negative) Urine Blood (Negative) Urine Nitrite (Negative) Urine Bilirubin (Negative) Urine Urobilinogen (0.2) mg/dL Ur Leukocyte Esterase (Negative) U Hyaline Cast (Auto) (0-2) /LPF Urine Microscopic RBC (0-5) /HPF Urine Microscopic WBC (0-5) /HPF Ur Epithelial Cells (None Seen) /HPF Urine Bacteria (None Seen) /HPF Urine Culture Reflexed (NO) 10/17/23 Range/Units 11:03 WBC (4.0-10.5) x10^3/uL RBC (4.1-5.6) x10^6/uL Hgb (12.5-18.0) g/dL Hct (42-50) % MCV (78-100) fL MCH (26-32) pg MCHC (32-36) g/dL RDW (11.5-14.0) % Plt Count (150-450) x10^3/uL MPV (7.5-11.0) fL Gran % (36.0-66.0) % Immature Gran % (Auto) (0.00-0.4) % Nucleat RBC Rel Count (0.00-0.1) % Eos # (Auto) (0-0.5) x10^3/uL Immature Gran # (Auto) (0.00-0.03) x10^3u/L Absolute Lymphs (auto) (1.0-4.6) x10^3/uL Absolute Monos (auto) (0.0-1.3) x10^3/uL Absolute Nucleated RBC (0.00-0.01) x10^3u/L Lymphocytes % (24.0-44.0) % Monocytes % (0.0-12.0) % Eosinophils % (0.00-5.0) % Basophils % (0.0-0.4) % Absolute Granulocytes (1.4-6.9) x10^3/uL Basophils # (0-0.4) x10^3/uL PT (9.4-12.5) SECONDS INR (0.8-3.0) APTT (25.1-36.5) SECONDS Puncture Site pCO2 (35-45) mmHg pO2 (75-100) mmHg Base Excess (-2.0-2.0) O2 Saturation (94-100) g/dF ABG pH (7.35-7.45) ABG HCO3 (22-28) ABG O2 Sat (Measured) (95-100) % Eder Test A-a Gradient a/A Ratio Hemoglobin Carboxyhemoglobin (0.0-6.9) % THgb Methemoglobin (1.4-1.5) % Potassium (3.5-5.1) Temperature C POC O2 Flow Rate % Sodium (135-145) mmol/L Chloride (98-107) mmol/L Carbon Dioxide (22-30) mmol/L Anion Gap (5-15) MEQ/L BUN (9-20) mg/dL Creatinine (0.66-1.25) mg/dL Estimated GFR ML/MIN Glucose (74-106) mg/dL POC Glucometer 114 H (74 to 106) mg/dL Calcium (8.4-10.2) mg/dL Magnesium (1.6-2.3) mg/dL Total Bilirubin (0.2-1.3) mg/dL AST (17-59) U/L ALT (0-50) U/L Alkaline Phosphatase (38-126) U/L Serum Total Protein (6.3-8.2) g/dL Albumin (3.5-5.0) g/dL Urine Color (Yellow) Urine Appearance (Clear) Urine pH (4.6-8.0) Ur Specific [place] (1.005-1.030) Urine Protein (Negative) Urine Glucose (UA) (Negative) mg/dL Urine Ketones (Negative) Urine Blood (Negative) Urine Nitrite (Negative) Urine Bilirubin (Negative) Urine Urobilinogen (0.2) mg/dL Ur Leukocyte Esterase (Negative) U Hyaline Cast (Auto) (0-2) /LPF Urine Microscopic RBC (0-5) /HPF Urine Microscopic WBC (0-5) /HPF Ur Epithelial Cells (None Seen) /HPF Urine Bacteria (None Seen) /HPF Urine Culture Reflexed (NO) Micro Results-Entire Visit: Accuchecks Date 10/17/23 Time 11:29 - Radiology Exams Ordered Rad Exams-Entire Visit: Radiology Procedures Category Date Time Status FOOT (2 VIEWS) Urgent Exams 10/17/23 08:36 Completed FOOT (MINIMUM 3 VIEWS) Stat Exams 10/16/23 20:56 Completed HEAD WITHOUT CONTRAST [CT] Stat Exams 10/16/23 20:15 Completed LOWER EXTREMITY WO CONTRAST [CT] Routine Exams 10/17/23 12:53 Completed MRI BRAIN W & W/O CONTRAST [MRI] Routine Exams 10/17/23 08:00 Completed - Procedures and Test Procedures and Tests throughout Hospitalization: Therapy Orders & Screens 10/17/23 00:36 Respiratory Therapy Consult ONCE Comment: Reason For Exam: Diagnosis: confusion 10/17/23 00:52 OT Screen per Nursing Assess ONCE Comment: Protocol Order Physician Instructions: Greater than 3 points order OT Admission Screening Reason For Exam: Triggered on Admission Diagnosis: confusion Open Wound/Cellutlitis/Pressure Ulcers: Yes Acute Fx/ORIF/Change in wt bearing status: No Severe MUSCULOSKELETAL pain: Yes ADL Dysfunction: No Acute CVA w/Hemiparesis/Hemiplegia: No Decreased Functional Mobility/Strength: Yes Sprain/Strain: No Acute Post-op Mobility Dysfunction: No Total Points: 11 PT Screen per Nursing Assess ONCE Comment: Protocol Order Physician Instructions: Greater than 3 points order PT Admission Screenin Reason For Exam: Triggered on Admission Diagnosis: confusion Open Wound/Cellutlitis/Pressure Ulcers: Yes Acute Fx/ORIF/Change in wt bearing status: No Severe MUSCULOSKELETAL pain: Yes ADL Dysfunction: No Acute CVA w/Hemiparesis/Hemiplegia: No Decreased Functional Mobility/Strength: Yes Sprain/Strain: No Acute Post-op Mobility Dysfunction: No Total Points: 11 Discharge Exam General Appearance: no apparent distress, alert Neurologic Exam: alert, oriented x 3, cooperative, normal mood/affect, nml cerebellar function, sensation nml, No motor deficits Eye Exam: PERRL, EOMI, eyes nml inspection Ears, Nose, Throat Exam: normal ENT inspection, pharynx normal, moist mucous membranes Neck Exam: normal inspection, non-tender, supple, full range of motion Respiratory Exam: normal breath sounds, lungs clear, No respiratory distress Cardiovascular Exam: regular rate/rhythm, normal heart sounds Gastrointestinal/Abdomen Exam: soft, No tenderness, No mass Male Genitalia Exam: deferred Rectal Exam: deferred Back Exam: normal inspection, normal range of motion, No CVA tenderness, No vertebral tenderness Extremity Exam: normal inspection, normal range of motion, parasthesia (BLLE- chronic) Skin Exam: normal color, warm, dry, other (right foot chronic wound of big toe.) Wound Assessment: Skin/Wound Assessment Wound/Incision Assessment Start: 10/17/23 00:52 Text: Status: Active Freq: Q6H Protocol: Document 10/17/23 08:00 RB (Rec: 10/17/23 09:10 RB [id number]) Wound/Incision Assessment Right Foot Wound Assessment Admission Wound Stage Unstageable Dressing Status Changed Drainage Amount None General Appearance Clean/Dry,Reddened,Blackened Wound Bed Greatest Portion Red (Granulation),Black ( Eschar) Surrounding Tissue [place] Topical Solution/Irrigant Saline Irrigant Primary Dressing Non-Adherent Gauze Pads Secondary Dressing Gauze Roll/Wrap Wound Photo Photo Taken Yes Final Diagnosis/Problem List - Final Discharge Diagnosis/Problem (1) Confusion Current Visit: Yes Status: Acute Assessment & Plan: - resolved - MRI and CT negative for acute concerns - most likely 2:2 Sleep apnea and taking off cpap when sleeping. Code(s): R41.0 - DISORIENTATION, UNSPECIFIED (2) Chronic kidney disease, stage 2 (mild) Current Visit: Yes Status: Acute Assessment & Plan: Creatinine 1.15 may reflect some mild prerenal azotemia versus CKD 1. Gentle IVFs 2. Encourage PO intake 3. Follow I/Os 4. Watch electrolytes, creatinine closely Code(s): N18.2 - CHRONIC KIDNEY DISEASE, STAGE 2 (MILD) (3) Peripheral neuropathy Current Visit: Yes Status: Chronic Assessment & Plan: - Chronic - Follows POONAM Rico pain managemnt at [facility] - droperidol gave in ER and helped with pain- continue PRN - Continue Suboxone for pain as prescribed by pain management- has brought in - will not allow pt to take the medication and states it makes him too sleepy - Will need to f/u with pain management for OP plan of care. - asking for narcotic pain meds for pt IP and OP per nurse. - again advised to f/u with pain management OP- most likely will d/c today - Narcotics are not indicated for neuropathy pain - Left foot XR: 3 nonweightbearing views left foot demonstrates osteopenia, mild 1st tarsometatarsal degenerative changes, small posterior/plantar heel spurs, and tiny cuboid accessory ossicle. No other bony, articular, or soft tissue abnormalities. Code(s): G62.9 - POLYNEUROPATHY, UNSPECIFIED (4) Decubitus ulcer Current Visit: No Status: Chronic Assessment & Plan: - chronic, follows wound care clinic at [facility] - podiatry consult- recommends to f/u Op with wound care no further orders at this time. 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 Small subcutaneous emphysema adjacent head 1st metatarsal, possible gas-forming infection in right clinical setting. Incidental small heel spurs. No other bony, articular, or soft tissue abnormalities. - CT RLE: Impression: 1. Amputation 1st/2nd toes and head 2nd metatarsal with overlying soft tissue swelling presumed postoperative. Infection not completely excluded in right clinical setting. Subcutaneous emphysema I reported on same-day radiograph is artifactual due to anterior plantar cutaneous soft tissue defect. 2. Small cyst superficial to plantar aponeurosis as detailed likely inflammatory/infectious. 3. Incidental heel spurs and small distal tibia bone cyst Code(s): L89.90 - PRESSURE ULCER OF UNSPECIFIED SITE, UNSPECIFIED STAGE (5) Obstructive sleep apnea Current Visit: Yes Status: Chronic Assessment & Plan: - continue CPAP at [facility] Code(s): G47.33 - OBSTRUCTIVE SLEEP APNEA (ADULT) (PEDIATRIC) - Discharge Discharge Date: 10/17/23 Disposition: Home, Self-Care Condition: Stable Prescriptions: Continue Atorvastatin Calcium [Lipitor] 1 tab PO HS Propranolol HCl [Inderal ] 1 tab PO BID Levothyroxine Sodium 1 tab PO DAILY Losartan Potassium [Cozaar] 1 tab PO HS Multivitamin 1 tab PO DAILY Folic Acid/Vit B Complex and C [Super B Complex Tablet] 1 tab PO DAILY Escitalopram Oxalate [Lexapro] 2 tab PO DAILY Aspirin EC 81 mg [Ecotrin 81 mg] 1 tab PO DAILY Buprenorphine HCl/Naloxone HCl [Suboxone 8 mg-2 mg Sl Film] 1 film SUBMUCOSAL TID Ezetimibe 10 mg [Zetia 10 MG] 1 tab PO HS Tamsulosin HCl 0.4 mg [Flomax 0.4 MG] 1 cap PO HS Super Vitamin B Complex 1 tab PO DAILY Dulaglutide [Trulicity] 0.75 mg SQ WEEKLY Follow up with: LUPIS NICHOLAS DPM [ACTIVE STAFF] - ORESTES DEWITT NP [Primary Care Provider] -
[2023-10-17] MEDS ORDERED: NON-FORMULARY ITEM (Atorvastatin Calcium [Lipitor] 80 MG Tablet) PO SCH (22:00)
[2023-10-17] MEDS ORDERED: ZOCOR 20MG PO SCH (22:00)
--- NOTE | 2023-10-19 07:19 | PCM.CONS ---
Podiatry HPI - Consult Date of Consultation Date: 10/17/23 Reason for Consult: diabetic foot wound Consulting Provider: LUPIS NICHOLAS DPM - [facility] History of Present Illness: Mr. CAMPO is a 73 year old male with a past medical history significant for hypertension, hyperlipidemia, sleep apnea, and neuropathy who presented to the hospital with complaints of left foot pain. His also reported increasing confusion, difficulty finding the right words, and he apparently pulled off his CPAP mask. He denies any focal weakness, slurred speech or dizziness. He was given droperidol for his foot, which has improved. His mentation is improved and he is currently AAOx3 in the ER. No chest pain, shortness of breath or palpitations. No nausea, vomiting or diarrhea. No dysuria, hematuria or foamy urine. Medications & Allergies Home Medications: Home Medication List Aspirin EC 81 mg [Ecotrin 81 mg] 1 tab PO DAILY 06/25/23 [History Confirmed 10/17/23] Atorvastatin Calcium [Lipitor] 1 tab PO HS 06/25/23 [History Confirmed 10/17/23] Buprenorphine HCl/Naloxone HCl [Suboxone 8 mg-2 mg Sl Film] 1 film SUBMUCOSAL TID 06/25/23 [History Confirmed 10/17/23] Escitalopram Oxalate [Lexapro] 2 tab PO DAILY 06/25/23 [History Confirmed 10/17/23] Ezetimibe 10 mg [Zetia 10 MG] 1 tab PO HS 06/25/23 [History Confirmed 10/17/23] Folic Acid/Vit B Complex and C [Super B Complex Tablet] 1 tab PO DAILY 06/25/23 [History Confirmed 10/17/23] Levothyroxine Sodium 1 tab PO DAILY 06/25/23 [History Confirmed 10/17/23] Losartan Potassium [Cozaar] 1 tab PO HS 06/25/23 [History Confirmed 10/17/23] Multivitamin 1 tab PO DAILY 06/25/23 [History Confirmed 10/17/23] Propranolol HCl [Inderal ] 1 tab PO BID 06/25/23 [History Confirmed 10/17/23] Tamsulosin HCl 0.4 mg [Flomax 0.4 MG] 1 cap PO HS 12/02/23 [History Confirmed 10/17/23] Dulaglutide [Trulicity] 0.75 mg SQ WEEKLY 10/16/23 [History Confirmed 10/17/23] Super Vitamin B Complex 1 tab PO DAILY 10/16/23 [History Confirmed 10/17/23] Allergies/Adverse Reactions: Allergies Allergy/AdvReac Type Severity Reaction Status Date / Time No Known Drug Allergies Allergy Verified 10/17/23 00:55 - Past Medical History Past Medical History: Yes Neurological History: No Pertinent History ENT History: No Pertinent History Cardiac History: High Cholesterol, Hypertension Respiratory History: COPD, Sleep Apnea Endocrine Medical History: Diabetes Type II, Hypothyroidism Musculoskelatal History: Fractures GI Medical History: Gallbladder Disease History: Renal Disease Pyscho-Social History: Anxiety, Depression Male Reproductive Disorders: Prostate Problems Comment: Multiple Myeloma, chronic pain: Pain management in [place] (Ozzie Gaines NP) - Past Surgical History Past Surgical History: Yes Neuro Surgical History: No Pertinent History Cardiac History: No Pertinent History Respiratory Surgery: No Pertinent History GI Surgical History: Cholecystectomy Genitourinary Surgical Hx: No Pertinent History Musculskeletal Surgical Hx: Amputation, Other Male Surgical History: No Pertinent History Other Surgical History: Back implant (Wavewriter Alpha 16 IPG), right wrist (librado and pins), Amputation of 1st, 2nd, 3rd toes of right foot, right knee replacement, left knee replacement, left femur (metal plate), vicente/trach, 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, sphincterotomy - Social History Smoking Status: Never smoker Exposure to second hand smoke: No Alcohol: None Drug Use: none - Social Determinants of Health Will the patient participate in the screening: Yes Do you worry about a steady place to live?: No Do you have any problems with any of the following?: Smoke detectors, Other In the past 12 months,have you had to go without utilities?: No Have you or anyone in your house had to go without enough: Choose not to answer Transportation Issues: No Has anyone in your support network made you feel unsafe?: No Does the patient want assistance with any of the above?: Yes Comment: PATIENT REPORTS HE IS HAVING SEPTIC TROUBLE AND [facility] WON'T FIX IT. HE REPORTS HE HAS A NEW HOUSE HE IS MOVING TO NEXT MONTH. HE DENIES NEEDING ANY FURTHER HELP WITH SITUATION AT THIS TIME Physical Exam - Vascular Peripheral Pulses: Posterior tibialis: 2+, Dorsalis-Pedis: 2+ Capillary Refill Time: < 3 seconds Hair Growth: Symmetrical and Bilateral Varicosities: Positive Edema: Pitting Edema Degree: 1+ Skin: Supple, not atrophic - Narrative Narrative Physical Exam: Podiatry Physical Exam Results - Labs Lab/Micro Results: Microbiology 10/17/23 11:00 Wound Culture - Preliminary Foot - Right Bottom GRAM POSITIVE ID AND SENSITIVITY PENDING - Radiology Impressions Radiology Exams & Impressions: Radiology Procedures Category Date Time Status FOOT (2 VIEWS) Urgent Exams 10/17/23 08:36 Completed LOWER EXTREMITY WO CONTRAST [CT] Routine Exams 10/17/23 12:53 Completed MRI BRAIN W & W/O CONTRAST [MRI] Routine Exams 10/17/23 08:00 Completed Assessment/Plan (1) Diabetic foot ulcer Status: Acute Code(s): E11.621 - TYPE 2 DIABETES MELLITUS WITH FOOT ULCER; L97.509 - NON-PRESSURE CHRONIC ULCER OTH PRT UNSP FOOT W UNSP SEVERITY (2) Chronic kidney disease, stage 2 (mild) Status: Acute Code(s): N18.2 - CHRONIC KIDNEY DISEASE, STAGE 2 (MILD) (3) Decubitus ulcer Status: Chronic Assessment & Plan: Initial patient examination and evaluation. Radiographs reviewed and discussed with the patient and nurse practitioner some concern for potential soft tissue gas for which a CT was obtained eliminating that concern. 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 Patient is stated this is not diabetes related and is accident related. Currently he is seeing wound care at [facility] and would like to continue therapy with them. Culture obtained pending results Patient on IV antibiotics at this time will continue to monitor in outpatient setting once culture and sensitivity has been assessed. Patient may return to wound care without significant concern. Patient may DC when medical criteria has been met Code(s): L89.90 - PRESSURE ULCER OF UNSPECIFIED SITE, UNSPECIFIED STAGE
== END 2023-10-17 16:34 | disposition home or self-care (01) ==
LOC: ED 19:39 → MED SURG 10-17 00:11
PROVIDERS: ADMIT Internal Medicine Nephrology; ATTEND Internal Medicine Nephrology
DX: R41.0 Disorientation, unspecified (principal); E11.22 Type 2 diabetes mellitus with diabetic chronic kidney disease; I12.9 Hypertensive chronic kidney disease with stage 1 through stage 4 chronic kidney disease, or unspecified chronic kidney disease; N18.9 Chronic kidney disease, unspecified; G62.9 Polyneuropathy, unspecified; G47.33 Obstructive sleep apnea (adult) (pediatric); E78.5 Hyperlipidemia, unspecified; E11.621 Type 2 diabetes mellitus with foot ulcer; L89.629 Pressure ulcer of left heel, unspecified stage; G93.41 Metabolic encephalopathy; Z79.899 Other long term (current) drug therapy; Z20.828 Contact with and (suspected) exposure to other viral communicable diseases; Z59.19 Other inadequate housing
CPT/HCPCS: 36415; 36600; 70450; 70553; 73620; 73630; 73700; 80053; 81001; 82375; 82803; 82947; 83735; 84134; 85025; 85027; 85610; 85730; 87070; 96374; 99285; G0378; Q3014; 87077; 87186; 99222; J1650; A9270-GY